=== PATIENT | female | born 1930 | race Caucasian/White ===

== ENCOUNTER → 2016-08-23 | Day surgery (SDC) | payer MEDICARE, BC ==
[~2016-08-23] MED LIST: AMLODIPINE5 MG PO; EZETIMIBE10 M1 PO; LISINOPRIL5 MG PO; METOPROLOL SR25 MG PO; NORVASC5 MG PO; POTASSIUM CHLO10 ME5 PO; SIMVASTATIN20 MG PO; VITAMIN D400 UNIT PO
--- NOTE | ~2016-08-23 | O ---
[place], [place] OPERATIVE NOTE NAME: PINA KIM UNIT #: [id number] ROOM: DOCTOR: KEITH HAIRSTON MD,CLEVE BIRTHDATE: [birth year] DOS: 08/23/2016 The patient was subjected to a bone marrow for neutropenia and mild relative lymphocytosis. DESCRIPTION OF PROCEDURE: The patient placed in the right lateral position, left posterior iliac crest area was cleaned with Betadine and alcohol. Local anesthesia was given with the Novocain. Periosteum was infiltrated with Novocain. After the patient became pain free, bone marrow needle was used to obtain an aspiration and biopsy. Bleeding was stopped. She was put on the back. We will keep her here for 15 minutes. We will call her with the bone marrow report next week. The patient left in a stable condition. RUPA PARKER MD CM:OPRECORD:OPERATIVE NOTE [id number] CLEVE HAIRSTON MD 08/23/16 2309 interface
[2016-08-23 08:30] VITALS: BP 159/70
[2016-08-23 08:55] LABS: HEMATOCRIT 43.4 % (37.0-47.0); HEMOGLOBIN 15.6 g/dl (12.0-16.0); MEAN CELL VOLUME 95.2 fl (81.0-99.0); MEAN CORPUSCULAR HGB 34.2 pg (27.0-31.0); MEAN CORPUSCULAR HGB CONC 35.9 g/dl (33.0-37.0); MEAN PLATELET VOLUME 10.1 fl (9.6-12.3); PLATELET COUNT AUTOMATED 211 10*3/uL (130-400); RED BLOOD COUNT 4.56 10*6/uL (4.10-5.10); RED CELL DISTRI WIDTH 12.6 % (0-14.5)
[2016-08-23 09:44] LABS: ATYPICAL LYMPHS 5 % (0-0); EOSINOPHIL # 0.2 10*3/uL (0-0.4); EOSINOPHILS 3 % (1-4); LYMPHOCYTE # 3.1 10*3/uL (1.3-4.4); MONOCYTE # 0.5 10*3/uL (0.1-1.0); NEUTROPHIL # 4.2 10*3/uL (2.3-7.9); NEUTROPHILS 52 % (47-73); PLATELET SUFFICIENCY NORMAL (NORMAL); TOTAL CELLS COUNTED 100 #CELLS
[2016-08-30 10:06] LABS: CELLS ANALYZED 20 (.); CELLS COUNTED 20 (.); CELLS KARYOTYPED 2 (.); CYTOGENETIC RESULT Comment: (.); GTG BAND RESOLUTION ACHIEVED 400 (.); INTERPRETATION Comment: (.)
== END | disposition home or self-care (01) ==
LOC: SDC 08:16
PROVIDERS: Internal Medicine
DX: D70.9 Neutropenia, unspecified (principal); I10 Essential (primary) hypertension; E78.00 Pure hypercholesterolemia, unspecified; M19.90 Unspecified osteoarthritis, unspecified site; Z90.710 Acquired absence of both cervix and uterus

== ENCOUNTER → 2016-11-17 | Day surgery (SDC) | payer MEDICARE, BC ==
[~2016-11-17] VITALS: Ht 162.5 cm; Wt 77.1 kg
[~2016-11-17] MED LIST changes: +DAILY VITAMIN1 EAC3 PO; +HYDR25T PO
--- NOTE | ~2016-11-17 | O ---
[place], [place] OPERATIVE NOTE NAME: PINA KIM UNIT #: [id number] ROOM: DOCTOR: ABELARDO LEIVA,[facility] BIRTHDATE: [birth year] DOS: PROCEDURE #1: HISTORY OF PRESENT ILLNESS: An 86-year-old patient who presented with anemia, undergoing investigation. ALLERGIES: SULFA. FAMILY HISTORY: Noncontributory. PAST SURGICAL HISTORY: Cholecystectomy and hysterectomy. PAST MEDICAL HISTORY: Hypercholesterolemia, hypertension. SOCIAL HISTORY: Nonsmoker, nonalcohol consumer. PROCEDURE: Today's procedure part of investigation is colonoscopy and panendoscopy. PREMEDICATION: Versed and Diprivan. SCOPE: Olympus forward-viewing gastroscope Q10 video. REPORT: After putting the patient in the left lateral position and after application of lubricant to the scope, the scope was introduced; thereafter, under direct visualization, advanced through the length of colon with some difficulty, difficulty being retained stool, severe diverticulosis and tortuosity of the colon in combination. Scope however, was negotiated as far as we could to mid ascending colon possibility. Photographic series for limitation of visualization due to retained stool was demonstrated, diverticulosis was photographed, which is mostly on the left and transverse colon, multiple wires done which was not successful. The patient extubated, tolerated the procedure well. IMPRESSION: Retained stool through the tortuous colon, diverticulosis, sessile rectal pouch polyps, status post piecemeal polypectomy. PLAN AND DISCUSSION: This patient requires a complication right colonic barium study due to the retained stool to ensure occult malignancy of cecum. This is going to be organized as an outpatient. Furthermore, we are going to proceed with panendoscopy. PROCEDURE #2: HISTORY OF PRESENT ILLNESS: Patient has presented with anemia, undergoing investigation. PROCEDURE: Today's procedure part of investigation is panendoscopy plus biopsy. [place], [place] OPERATIVE NOTE NAME: PINA KIM UNIT #: [id number] ROOM: [facility] B[facility]: [birth year] PREMEDICATION: Versed and Diprivan. SCOPE: Olympus forward-viewing gastroscope Q10 video. REPORT: After putting the patient in the left lateral position and after application of lubricant to the scope, the scope was introduced. Thereafter, under direct visualization, I advanced through the length of the esophagus without difficulty. Gastric pouch was entered. Gastritis was noticed. Hiatal hernia below which is a small was identified. Antral biopsy obtained: GI reflexion of the scope reveals cardia to be benign. After antral biopsy, the patient was extubated, tolerated procedure well. IMPRESSION: Small hiatal hernia, gastritis, status post antral biopsy. PLAN AND DISCUSSION: I did not find any active source of GI bleed with the limitations of partially cleaned colon and retained stool. I am going to offer the patient for outpatient barium enema, complication of right colon visualization, otherwise if she does not, I agree then we are going to re-prep colon and redo colonoscopy in future. I thank you very much indeed for your kind referral. JOE ZHOU MD CM:OPRECORD:OPERATIVE NOTE [id number] JOE ZHOU MD 11/17/16 1748 interface
[2016-11-17 12:18] VITALS: BP 154/62
[2016-11-17 13:55] VITALS: BP 143/67
[2016-11-17 14:11] VITALS: BP 152/71
[2016-11-17 14:22] VITALS: BP 152/71
== END | disposition home or self-care (01) ==
LOC: SDC 11-14 13:15
DX: K62.1 Rectal polyp (principal); K57.30 Diverticulosis of large intestine without perforation or abscess without bleeding; K29.50 Unspecified chronic gastritis without bleeding; K63.89 Other specified diseases of intestine; K44.9 Diaphragmatic hernia without obstruction or gangrene; D64.9 Anemia, unspecified; Z90.710 Acquired absence of both cervix and uterus; I10 Essential (primary) hypertension; E78.00 Pure hypercholesterolemia, unspecified; Z88.2 Allergy status to sulfonamides; M19.90 Unspecified osteoarthritis, unspecified site

== ENCOUNTER → 2016-11-24 | Outpatient (CLI) | payer MEDICARE, BC | END | disposition home or self-care (01) | LOC: RAD 08:00 | DX: K57.90 Diverticulosis of intestine, part unspecified, without perforation or abscess without bleeding (principal); K63.5 Polyp of colon ==

== ENCOUNTER 2017-04-04 11:02 | Inpatient (IN) | payer MEDICARE, BC ==
[2017-04-04] VITALS (9 sets, daily range): BP systolic 119–148; BP diastolic 46–99
[~2017-04-04] VITALS: Ht 162.5 cm; Wt 84.5 kg
--- NOTE | 2017-04-04 11:02 | NUR ---
DEFIB PADS APPLIED. ODALIS RENEE RN
[2017-04-04 11:48] LABS: BILIRUBIN 1+ (NEGATIVE); BLOOD NEGATIVE (NEGATIVE); CLARITY SL CLOUDY (CLEAR); COLOR YELLOW (YELLOW); GLUCOSE NEGATIVE (NEGATIVE); KETONE TRACE (NEGATIVE); LEUKO ESTERASE 2+ (NEGATIVE); NITRITE NEGATIVE (NEGATIVE); PH 5.5 (5.0-9.0); SPECIFIC GRAVITY 1.025 (1.005-1.030)
[2017-04-04 11:51] LABS: BASO # 0.1 10*3/uL (0.0-0.1); BASO % 0.7 % (0.0-1.0); EOS # 0.3 10*3/uL (0.0-0.4); EOS % 3.2 % (1.0-4.0); HEMATOCRIT 41.6 % (37.0-47.0); HEMOGLOBIN 14.1 g/dl (12.0-16.0); MEAN CORPUSCULAR HGB 34.2 pg (27.0-31.0); MEAN CORPUSCULAR HGB CONC 33.9 g/dl (33.0-37.0); MEAN PLATELET VOLUME 10.6 fl (9.6-12.3); MONO # 0.7 10*3/uL (0.1-1.0); MONO % 7.4 % (3.0-9.0); NEUT # 3.8 10*3/uL (2.3-7.9); NEUT % 43.4 % (47.0-73.0); PLATELET COUNT AUTOMATED 199 10*3/uL (130-400); RED BLOOD COUNT 4.12 10*6/uL (4.10-5.10); RED CELL DISTRI WIDTH 13.1 % (0-14.5); WHITE BLOOD COUNT 8.9 10*3/uL (4.8-10.8)
[2017-04-04 11:59] LABS: ACT PARTIAL THROMBO TIME 24.5 SECONDS (20.8-31.5)
[2017-04-04 12:05] LABS: BACTERIA 4+; WBC TNTC wbc/hpf (0-5)
[2017-04-04 12:09] LABS: ALBUMIN 2.8 gm/dl (3.1-4.5); ALKALINE PHOSPHATASE 85 U/L (45-117); BUN 17 mg/dl (7-24); CHLORIDE 109 mmol/L (98-107); CREATININE 0.95 mg/dL (0.55-1.02); SGOT/AST 23 IU/L (3-35); SGPT/ALT 21 U/L (12-78); SODIUM 141 mmol/L (136-145); TOTAL PROTEIN 5.8 gm/dL (6.4-8.2)
[2017-04-04 12:12] LABS: TROPONIN I < 0.015 ng/ml (<0.045)
--- NOTE | 2017-04-04 13:09 | NUR ---
ROOM ASSIGNED TO 529 NOW. AWAITING OPPORTUNITY TO PROVIDE NURSE REPORT [place] [facility]
[2017-04-04] MEDS ORDERED: Lopressor25 MG PO (16:01)
[2017-04-04] MEDS ORDERED: NORVASC10 MG PO (16:01)
[2017-04-04] MEDS ORDERED: CITALOPRAM10 MG PO (16:01)
[2017-04-04] MEDS ORDERED: LISINOPRIL20 MG PO (16:02)
[2017-04-04] MEDS ORDERED: QUETIAPINE FUMA25 M1 PO (16:02)
[2017-04-04] MEDS ORDERED: FISH OIL CONC1000 M1 PO (16:03)
[2017-04-04] MEDS ORDERED: PRAVACHOL20 MG PO (16:03)
--- NOTE | 2017-04-04 16:05 | NUR ---
MED REC UPDATED USING INFORMATION PROVIDED BY THE PATIENT; SHE BROUGHT IN HER PILL BOTTLES FROM HOME EXCEPT FOR THE FISH OIL AND MULTIVITAMIN. PRAVACHOL REPORTED BY CLAIMS HISTORY BY PATIENT'S REPORTED PHARMACY.
--- NOTE | 2017-04-04 16:09 | NUR ---
DR. CARVAJAL AWARE OF CONSULT.
--- NOTE | 2017-04-04 20:00 | NUR ---
LAB RESULTS AND ORDERS REVIEWED. PT RESTING IN BED. FAMILY AT BEDSIDE. NO S AND S OF ACUTE DISTRESS NOTED AT THIS TIME. RESPS EASY AMD UNLABORED. PLAN OF CARE REVIEWED. NO QUESTIONS CURRENTLY. CALL LIGHT REINFORCED.
[2017-04-05] VITALS: BP 146/73
--- NOTE | 2017-04-05 03:00 | NUR ---
PT RESTING IN BED WITH EYES CLOSED. RESPS EASY AND REGULAR. NO ACUTE DISTRESS NOTED AT THIS TIME. CALL LIGHT IN REACH. TELE MONITOR INTACT.
[2017-04-05 04:00] VITALS: BP 158/57
[2017-04-05 06:45] LABS: BASO # 0.1 10*3/uL (0.0-0.1); BASO % 0.5 % (0.0-1.0); EOS # 0.5 10*3/uL (0.0-0.4); HEMOGLOBIN 14.4 g/dl (12.0-16.0); LYMPH # 4.4 10*3/uL (1.3-4.4); MEAN CELL VOLUME 100.7 fl (81.0-99.0); MEAN CORPUSCULAR HGB 34.5 pg (27.0-31.0); MEAN CORPUSCULAR HGB CONC 34.3 g/dl (33.0-37.0); MEAN PLATELET VOLUME 11.1 fl (9.6-12.3); MONO # 0.8 10*3/uL (0.1-1.0); MONO % 7.6 % (3.0-9.0); NEUT # 4.6 10*3/uL (2.3-7.9); NEUT % 44.7 % (47.0-73.0); PLATELET COUNT AUTOMATED 202 10*3/uL (130-400); RED BLOOD COUNT 4.17 10*6/uL (4.10-5.10); RED CELL DISTRI WIDTH 13.2 % (0-14.5); WHITE BLOOD COUNT 10.4 10*3/uL (4.8-10.8)
[2017-04-05 07:21] LABS: BUN 11 mg/dl (7-24); CHLORIDE 108 mmol/L (98-107); CHOLESTEROL 216 mg/dL (<200); CREATININE 0.71 mg/dL (0.55-1.02); POTASSIUM 3.7 mmol/L (3.5-5.1); SODIUM 142 mmol/L (136-145)
[2017-04-05 07:33] LABS: HDL CHOLESTEROL 47 mg/dl (40-60); LDL CHOLESTEROL 130 mg/dL (9-159); PHOSPHOROUS 2.7 mg/dL (2.5-4.9); TRIGLYCERIDES 196 mg/dl (<150); VLDL CHOLESTEROL 39 mg/dL (6-40)
[2017-04-05 08:00] VITALS: BP 157/59
[2017-04-05 08:34] LABS: VITAMIN D, 25-HYDROXY 28.6 ng/mL (30-100)
--- NOTE | 2017-04-05 09:00 | NUR ---
Senior Pharmacy Technician in to talk to patient. Patient states lives at home with . There are few steps in the home. Physician: hema huang Pharmacy: [facility] health services: none Patient's level of ADLs: MINIMAL ASSIST Patient has working utilities: all working DME: none Follow-up physician's appointment after d/c: will be made by hospitalist nurse director upon discharge Does patient want to access PORTAL?: no Discharge plan discussed with patient, patient lives at home with , and daughter present, daughter stated that her mom gets around fine, has steps to the basement, but doesn't go up and down them anymore, discussed with them a short term snf for rehab and they all refused, also discussed [facility] and they also refused this, case management will follow for any home needs. BOBBY CHAUDHARI
[2017-04-05 12:00] VITALS: BP 125/45
--- NOTE | 2017-04-05 13:28 | NUR ---
PT IN BED, LAYING DOWN, RESTING. PT VOICES NO COMPLAINTS AT THIS TIME. TOLERATING ANTIBIOTICS WELL. WILL CONTINUE TO MONITOR.
--- NOTE | 2017-04-05 14:07 | NUR ---
PT VISITING WITH FAMILY. PT VOICES NO COMPLAINTS AT THIS TIME. FLUIDS RUNNING. WILL CONTINUE TO MONITOR.
[2017-04-05 16:00] VITALS: BP 133/43
--- NOTE | 2017-04-05 18:28 | NUR ---
PT UP, WALKING JOYCE TO WAITING ROOM AND BACK. ACCOMPANIED BY FAMILY AND THIS NURSE. O2 SAT BEFORE WALKING WAS 93% ON RA. FAMILY/PT INSISTED ON WALKING TO INCREASE GAS EXCHANGE. ONCE IN WAITING ROOM, PTs 02 SATs DROPPED TO 89% ON RA. PT TOLERATING WALK WELL. VOICES NO CONCERNS AND FEELS "A LITTLE SHORT OF BREATH." TOWARD THE END OF THE WALK PT STARTED FEELING DIZZY. PT WALKED BACK TO HER BED WITH NO INCIDENTS. O2 SATs UPON SITTING BACK ON BED WAS 91% RA. PT PLACED BACK ON NC AT 2.5L, O2 SATs 93-9%. PT VOICES THAT SHE WOULD LIKE TO WALK AGAIN ONE MORE TIME BEFORE HER FAMILY LEAVES. WILL CONTINUE TO MONITOR.
[2017-04-05 20:00] VITALS: BP 150/79
--- NOTE | 2017-04-05 20:26 | NUR ---
IV IN LEFT ARM LEAKING, NEW 20GA IV PLACED IN RIGHT WRIST. SITE CLEANED WIRH CHLOROPREP, 22GA PLACED AND SECURED WITH DRESSING AND TAPE, FLUSHES EASILY, NO S/S OF INFILTRATION.
--- NOTE | 2017-04-05 22:48 | NUR ---
PATIENT AWAKE AND ALERT. VOICES NO COMPLAINTS. IV SITE CHANGED AT BEGINNNING OF THE SHIFT, NO FURTHER PROBLEMS. IV FLUIDS RUNNING WITHOUT PROBLEMS. 1+ EDEMA TO LOWER EXTREMITIES. LUNG SOUNDS ARE DIMINISHED WITH SLIGHT WHEEZE.
[2017-04-06] VITALS: BP 170/61
[2017-04-06 07:39] LABS: BASO # 0.1 10*3/uL (0.0-0.1); BASO % 0.6 % (0.0-1.0); EOS # 0.5 10*3/uL (0.0-0.4); EOS % 5.2 % (1.0-4.0); HEMATOCRIT 42.8 % (37.0-47.0); HEMOGLOBIN 14.5 g/dl (12.0-16.0); LYMPH # 4.7 10*3/uL (1.3-4.4); LYMPH % 48.8 % (27.0-41.0); MEAN CELL VOLUME 99.3 fl (81.0-99.0); MEAN CORPUSCULAR HGB 33.6 pg (27.0-31.0); MEAN CORPUSCULAR HGB CONC 33.9 g/dl (33.0-37.0); MEAN PLATELET VOLUME 10.8 fl (9.6-12.3); MONO # 0.7 10*3/uL (0.1-1.0); MONO % 7.7 % (3.0-9.0); NEUT # 3.6 10*3/uL (2.3-7.9); NEUT % 37.4 % (47.0-73.0); PLATELET COUNT AUTOMATED 209 10*3/uL (130-400); RED BLOOD COUNT 4.31 10*6/uL (4.10-5.10); RED CELL DISTRI WIDTH 13.1 % (0-14.5); WHITE BLOOD COUNT 9.6 10*3/uL (4.8-10.8)
[2017-04-06 07:51] LABS: ALBUMIN 3.1 gm/dl (3.1-4.5); ALKALINE PHOSPHATASE 86 U/L (45-117); BUN 6 mg/dl (7-24); CHLORIDE 106 mmol/L (98-107); CREATININE 0.71 mg/dL (0.55-1.02); POTASSIUM 3.7 mmol/L (3.5-5.1); SGOT/AST 33 IU/L (3-35); SGPT/ALT 21 U/L (12-78); SODIUM 138 mmol/L (136-145); TOTAL PROTEIN 6.6 gm/dL (6.4-8.2)
[2017-04-06 08:00] VITALS: BP 160/64
--- NOTE | 2017-04-06 09:00 | NUR ---
case management visits with patient, patient denies any home needs
[2017-04-06 12:00] VITALS: BP 129/52
--- NOTE | 2017-04-06 14:45 | NUR ---
PHYSICAL THERAPY PAtient evaluated on 5, full evaluation to follow. Continue with PT as per plan of care with fall, recent bradycardiac and change in mental status precautions. Home with assist and complete home health services versus SNF, pending progress. PAtient is moderate complexity via chart review, tests and evaluation: [id number]. Thank you for this referral. Mana Schulz,PT
[2017-04-06 16:00] VITALS: BP 166/63
[2017-04-06 20:00] VITALS: BP 160/60
--- NOTE | 2017-04-06 20:00 | NUR ---
AAOX3 RESTING IN BED. HEP LOCK INTACT TO RIGHT WRIST; SITE ASYMPTOMATIC. LUNGS CLEAR AT THIS TIME WITH NO COUGH NOTED. PT. VOICES NO C/O AT THIS TIME. ENCOURAGED USE OF CALL LIGHT FOR AMBULATING; VERBALIZED UNDERSTANDING. CALL LIGHT WITHIN REACH.
[2017-04-07] VITALS: BP 139/45
--- NOTE | 2017-04-07 | NUR ---
RESTING IN BED WITH EYES CLOSED. RESPIRATIONS EASY & UNLABORED. CALL LIGHT WITHIN REACH.
--- NOTE | 2017-04-07 04:00 | NUR ---
C/O NAUSEA; WILL CALL [facility]
--- NOTE | 2017-04-07 04:28 | NUR ---
MEDICATED WITH ZOFRAN FOR C/O NAUSEA.
[2017-04-07 06:54] LABS: BASO # 0.1 10*3/uL (0.0-0.1); BASO % 0.6 % (0.0-1.0); EOS # 0.4 10*3/uL (0.0-0.4); EOS % 4.3 % (1.0-4.0); HEMATOCRIT 42.2 % (37.0-47.0); HEMOGLOBIN 14.3 g/dl (12.0-16.0); LYMPH # 4.3 10*3/uL (1.3-4.4); LYMPH % 46.1 % (27.0-41.0); MEAN CELL VOLUME 101.2 fl (81.0-99.0); MEAN CORPUSCULAR HGB 34.3 pg (27.0-31.0); MEAN CORPUSCULAR HGB CONC 33.9 g/dl (33.0-37.0); MONO # 0.8 10*3/uL (0.1-1.0); MONO % 8.5 % (3.0-9.0); NEUT # 3.7 10*3/uL (2.3-7.9); NEUT % 40.3 % (47.0-73.0); PLATELET COUNT AUTOMATED 206 10*3/uL (130-400); RED BLOOD COUNT 4.17 10*6/uL (4.10-5.10); RED CELL DISTRI WIDTH 13.2 % (0-14.5); WHITE BLOOD COUNT 9.3 10*3/uL (4.8-10.8)
[2017-04-07 07:30] LABS: BUN 6 mg/dl (7-24); CHLORIDE 107 mmol/L (98-107); CREATININE 0.62 mg/dL (0.55-1.02); POTASSIUM 3.6 mmol/L (3.5-5.1); SGOT/AST 31 IU/L (3-35); SGPT/ALT 21 U/L (12-78); SODIUM 143 mmol/L (136-145)
[2017-04-07 07:32] LABS: ALKALINE PHOSPHATASE 82 U/L (45-117); TOTAL PROTEIN 6.3 gm/dL (6.4-8.2)
[2017-04-07 08:00] VITALS: BP 142/64
[2017-04-07 12:00] VITALS: BP 124/52
[2017-04-07 16:00] VITALS: BP 124/56
[2017-04-07 20:00] VITALS: BP 121/46
--- NOTE | 2017-04-07 20:00 | NUR ---
AWAKE & ALERT RESTING IN BED. 02 INTACT AT 1.5 LITERS & IS HUMIDIFIED. PULSE OX 93%. LUNGS CLEAR IWTH NO COUGH NOTED. JAMMIE HOSE ON; EDEMA NOTED TO BILATERAL LOWER EXTREMITIES. PT. VOICES NO C/O PAIN OR DISCOMFORT AT THIS TIME. CALL LIGHT WITHIN REACH.
--- NOTE | 2017-04-07 23:25 | NUR ---
CALLED DR. CAMARILLO REGARDING PATIENT'S URINE CULTURE RESULTS. PATIENT IS ON ROCEPHIN.
[2017-04-08] VITALS: BP 148/55
[2017-04-08 07:25] LABS: BASO # 0.1 10*3/uL (0.0-0.1); BASO % 0.6 % (0.0-1.0); EOS # 0.6 10*3/uL (0.0-0.4); HEMATOCRIT 42.4 % (37.0-47.0); LYMPH # 4.1 10*3/uL (1.3-4.4); LYMPH % 48.1 % (27.0-41.0); MEAN CELL VOLUME 102.4 fl (81.0-99.0); MEAN CORPUSCULAR HGB 33.8 pg (27.0-31.0); MEAN PLATELET VOLUME 11.1 fl (9.6-12.3); MONO # 0.8 10*3/uL (0.1-1.0); NEUT % 35.1 % (47.0-73.0); PLATELET COUNT AUTOMATED 202 10*3/uL (130-400); RED BLOOD COUNT 4.14 10*6/uL (4.10-5.10); RED CELL DISTRI WIDTH 13.2 % (0-14.5); WHITE BLOOD COUNT 8.6 10*3/uL (4.8-10.8)
[2017-04-08 07:50] LABS: ALBUMIN 2.8 gm/dl (3.1-4.5); BUN 7 mg/dl (7-24); CHLORIDE 105 mmol/L (98-107); POTASSIUM 3.6 mmol/L (3.5-5.1); SGOT/AST 37 IU/L (3-35); SGPT/ALT 23 U/L (12-78); SODIUM 142 mmol/L (136-145)
[2017-04-08 07:51] LABS: ALKALINE PHOSPHATASE 75 U/L (45-117)
[2017-04-08 08:00] VITALS: BP 148/64
[2017-04-08] MEDS ORDERED: LEVOFLOXACIN500 MG PO (12:05)
--- NOTE | 2017-04-08 12:49 | NUR ---
Discharge instructions reviewed with patient/family. Patient receptive and verbalizes understanding. Follow-up care arranged. Written instructions given to patient/family.TELEMETRY ACCOUNTED FOR AND HEPLOCK REMOVED. GABRIELLA GANN
== END 2017-04-08 12:49 | disposition home or self-care (01) | DRG 689 ==
LOC: ED 11:13 → 5E 12:20 → EDHOLD 12:20 → 5E 13:07
PROVIDERS: Emergency Medicine; Student in an Organized Health Care Education/Training Program; ADMIT Internal Medicine
DX: N39.0 Urinary tract infection, site not specified (principal); E43 Unspecified severe protein-calorie malnutrition; E86.0 Dehydration; I50.30 Unspecified diastolic (congestive) heart failure; D75.89 Other specified diseases of blood and blood-forming organs; I35.0 Nonrheumatic aortic (valve) stenosis; I11.0 Hypertensive heart disease with heart failure; R55 Syncope and collapse; R00.1 Bradycardia, unspecified; E55.9 Vitamin D deficiency, unspecified; F41.9 Anxiety disorder, unspecified; E78.00 Pure hypercholesterolemia, unspecified; M81.0 Age-related osteoporosis without current pathological fracture; Z90.49 Acquired absence of other specified parts of digestive tract; Z90.710 Acquired absence of both cervix and uterus; Z80.42 Family history of malignant neoplasm of prostate; Z88.2 Allergy status to sulfonamides; Z88.8 Allergy status to other drugs, medicaments and biological substances; Z82.3 Family history of stroke; Z79.899 Other long term (current) drug therapy; Z68.32 Body mass index [BMI] 32.0-32.9, adult

== ENCOUNTER → 2018-07-04 | Outpatient (CLI) | payer MEDICARE, BC ==
[~2018-07-04] MED LIST changes: +CITALOPRAM10 MG PO; +FISH OIL CONC1000 M1 PO; +LEVOFLOXACIN500 MG PO; +LISINOPRIL20 MG PO; +Lopressor25 MG PO; +NORVASC10 MG PO; +PRAVACHOL20 MG PO; +QUETIAPINE FUMA25 M1 PO
== END | disposition home or self-care (01) ==
LOC: CARD 02:39
DX: I08.0 Rheumatic disorders of both mitral and aortic valves (principal)